=== PATIENT | male | born 1985 | race Caucasian/White ===

== ENCOUNTER 2017-07-31 16:12 | Emergency (ER) | payer OTHER | END 2017-07-31 16:52 | disposition home or self-care (01) | LOC: M ED 16:12 | DX: S02.5XXA Fracture of tooth (traumatic), initial encounter for closed fracture (principal); X58.XXXA Exposure to other specified factors, initial encounter; Y92.9 Unspecified place or not applicable; Y93.9 Activity, unspecified; Y99.9 Unspecified external cause status; F15.10 Other stimulant abuse, uncomplicated; Z79.810 Long term (current) use of selective estrogen receptor modulators (SERMs) | CPT/HCPCS: 99282 ==

== ENCOUNTER → 2017-09-22 | Outpatient (CLI) | payer OTHER ==
[2017-09-22 09:11] LABS: HEMATOCRIT 40.7 % (42.0-52.0); HEMOGLOBIN 13.8 g/dl (13.5-17.5); MEAN CORPUSCULAR HEMOGLOBIN 29.6 pg (27.0-33.0); MEAN CORPUSCULAR HGB CONC 33.9 g/dl (32.0-36.5); MEAN CORPUSCULAR VOLUME 87.3 fl (80.0-96.0); PLATELET COUNT, AUTOMATED 213 10^3/uL (150-450); RED BLOOD COUNT 4.66 10^6/uL (4.30-6.10); RED CELL DISTRIBUTION WIDTH 13.2 % (11.5-14.5); WHITE BLOOD COUNT 6.5 10^3/uL (4.0-10.0)
[2017-09-22 09:29] LABS: ALBUMIN 4.1 GM/DL (3.2-5.2); ALBUMIN/GLOBULIN RATIO 0.98 (1.00-1.93); ALKALINE PHOSPHATASE 69 U/L (45-117); ALT/SGPT 28 U/L (12-78); ANION GAP 8 MEQ/L (8-16); AST/SGOT 26 U/L (7-37); BILIRUBIN,TOTAL 0.5 MG/DL (0.2-1.0); BLOOD UREA NITROGEN 15 MG/DL (7-18); CALCIUM LEVEL 9.7 MG/DL (8.5-10.1); CARBON DIOXIDE LEVEL 30 MEQ/L (21-32); CHLORIDE LEVEL 101 MEQ/L (98-107); CREATININE FOR GFR 0.73 MG/DL (0.70-1.30); GLOMERULAR FILTRATION RATE > 60.0 (>60); GLUCOSE, FASTING 104 MG/DL (70-100); POTASSIUM SERUM 3.9 MEQ/L (3.5-5.1); SODIUM LEVEL 139 MEQ/L (136-145); TOTAL PROTEIN 8.3 GM/DL (6.4-8.2)
[2017-09-22 09:47] LABS: HEPATITIS B SURFACE ANTIGEN NEGATIVE (NEGATIVE)
[2017-09-22 10:15] LABS: HEPATITIS C VIRUS ABY INDEX 0.1 INDEX (<0.8)
[2017-09-22 10:16] LABS: HIV 1&2 SCREEN CENTAUR NEGATIVE (NEGATIVE)
[2017-09-22 12:49] LABS: CHLAMYDIA DNA AMPLIFICATION NEGATIVE (NEGATIVE); GC DNA AMPLIFICATION NEGATIVE (NEGATIVE)
== END ==
LOC: M LAB 08:01
DX: F11.20 Opioid dependence, uncomplicated (principal)
CPT/HCPCS: 93005

== ENCOUNTER 2018-03-27 01:05 | Emergency (ER) | payer OTHER ==
[2018-03-27 02:09] LABS: BASO % 0.4 % (0.0-1.0); EOS # 0.1 10^3/uL (0.0-0.50); EOS % 1.3 % (0.0-3.0); HEMATOCRIT 38.3 % (42.0-52.0); HEMOGLOBIN 12.5 g/dl (13.5-17.5); IMMATURE GRANULOCYTE % 0.1 % (0-3.0); LYMPH # 1.9 10^3/uL (1.5-4.5); LYMPH % 26.9 % (24.0-44.0); MEAN CORPUSCULAR HEMOGLOBIN 28.9 pg (27.0-33.0); MEAN CORPUSCULAR HGB CONC 32.6 g/dl (32.0-36.5); MEAN CORPUSCULAR VOLUME 88.5 fl (80.0-96.0); MONO # 0.4 10^3/uL (0.0-0.8); MONO % 5.8 % (0.0-5.0); NEUTROPHILS # 4.5 10^3/uL (1.8-7.7); NEUTROPHILS % 65.5 % (36.0-66.0); PLATELET COUNT, AUTOMATED 218 10^3/uL (150-450); RED BLOOD COUNT 4.33 10^6/uL (4.30-6.10); RED CELL DISTRIBUTION WIDTH 12.5 % (11.5-14.5); WHITE BLOOD COUNT 6.9 10^3/uL (4.0-10.0)
[2018-03-27 02:39] LABS: ANION GAP 8 MEQ/L (8-16); BLOOD UREA NITROGEN 12 MG/DL (7-18); CARBON DIOXIDE LEVEL 27 MEQ/L (21-32); CHLORIDE LEVEL 105 MEQ/L (98-107); CREATININE FOR GFR 0.74 MG/DL (0.70-1.30); GLOMERULAR FILTRATION RATE > 60.0 (>60); GLUCOSE, FASTING 107 MG/DL (70-100); POTASSIUM SERUM 4.8 MEQ/L (3.5-5.1); SODIUM LEVEL 140 MEQ/L (136-145)
== END 2018-03-27 02:35 | disposition left against medical advice (07) ==
LOC: M ED 01:05
DX: L98.9 Disorder of the skin and subcutaneous tissue, unspecified (principal); R53.1 Weakness; F11.10 Opioid abuse, uncomplicated; Z87.891 Personal history of nicotine dependence
CPT/HCPCS: 80048

== ENCOUNTER 2018-03-28 22:27 | Emergency (ER) | payer OTHER ==
[2018-03-28] MEDS: BACTRIM 160MG/800MG DS TAB PO (23:13)
[2018-03-28] MEDS: LIDOCAINE 1% SDV 5 ML VIAL DILUENT (23:13)
[2018-03-28] MEDS: cefTRIAXone SOD 1 GM VIAL (J0696) IM (23:13)
== END 2018-03-28 23:32 | disposition home or self-care (01) ==
LOC: M ED 22:27
DX: L03.114 Cellulitis of left upper limb (principal); F11.10 Opioid abuse, uncomplicated
CPT/HCPCS: J0696

== ENCOUNTER 2018-04-08 23:41 | Emergency (ER) | payer OTHER ==
[~2018-04-08] VITALS: Ht 177.8 cm; Wt 67.3 kg
[2018-04-08 23:41] VITALS: BP 146/83
[~2018-04-08 23:41] MED LIST: AMOX500C PO; BACT800T5 PO; METH40TA PO
== END 2018-04-08 23:50 | disposition left against medical advice (07) ==
LOC: M ED 23:41
DX: Z53.29 Procedure and treatment not carried out because of patient's decision for other reasons (principal)

== ENCOUNTER 2018-04-24 15:01 | Emergency (ER) | payer OTHER ==
[~2018-04-24] VITALS: Ht 177.8 cm; Wt 66.8 kg
[2018-04-24 15:02] VITALS: BP 142/81
== END 2018-04-24 15:31 | disposition left against medical advice (07) ==
LOC: M ED 15:01
DX: Z53.29 Procedure and treatment not carried out because of patient's decision for other reasons (principal)

== ENCOUNTER 2018-04-24 18:36 | Emergency (ER) | payer OTHER ==
[~2018-04-24] VITALS: Ht 177.8 cm; Wt 66.8 kg
[2018-04-24 19:53] VITALS: BP 145/88
[2018-04-24] MEDS ORDERED: CLINDAMYCIN 900 MG in APPROPRIATE DILUENT 1 EA IV ONE (20:15)
== END 2018-04-24 20:34 | disposition left against medical advice (07) ==
LOC: M ED 18:36
DX: L03.114 Cellulitis of left upper limb (principal); F11.20 Opioid dependence, uncomplicated; F17.210 Nicotine dependence, cigarettes, uncomplicated

== ENCOUNTER → 2018-06-09 | Outpatient (REF) | payer OTHER | LOC: M SFHCLERA 16:31 | PROVIDERS: ATTEND Nurse Practitioner Family | DX: L03.114 Cellulitis of left upper limb (principal) ==

== ENCOUNTER → 2018-06-15 | Outpatient (CLI) | payer MEDICAID | LOC: M OUTALCOH 08:30 | PROVIDERS: ATTEND Psychiatry & Neurology Psychiatry | DX: Z13.9 Encounter for screening, unspecified (principal) ==

== ENCOUNTER 2018-06-17 21:57 | Emergency (ER) | payer MEDICAID, OTHER ==
[~2018-06-17] VITALS: Ht 177.8 cm; Wt 70.5 kg
[2018-06-17 21:57] VITALS: BP 129/77
[2018-06-17] MEDS ORDERED: BACT800T5 PO (22:06)
[2018-06-17] MEDS ORDERED: CLINDAMYCIN 900 MG in APPROPRIATE DILUENT 1 EA IV ONE (23:15)
--- NOTE | 2018-06-18 00:48 | REP ---
Clinical: Cellulitis. Technique: AP and lateral views of the left forearm. Findings: Osseous structures and joint spaces are intact and normal. No acute fracture dislocation. No periosteal reaction. Surrounding soft tissues without subcutaneous emphysema or radiodense foreign body. Impression: Normal left forearm radiographs. Electronically Signed by Alfred Castelan MD 06/18/2018 12:40 A
== END 2018-06-18 | disposition left against medical advice (07) ==
LOC: M ED 21:57
DX: L03.113 Cellulitis of right upper limb (principal); L03.114 Cellulitis of left upper limb; F11.20 Opioid dependence, uncomplicated

== ENCOUNTER 2018-06-21 21:57 | Emergency (ER) | payer OTHER ==
[~2018-06-21] VITALS: Ht 177.8 cm; Wt 70.5 kg
[2018-06-21 21:58] VITALS: BP 155/91
== END 2018-06-21 22:38 | disposition left against medical advice (07) ==
LOC: M ED 21:57
DX: Z53.21 Procedure and treatment not carried out due to patient leaving prior to being seen by health care provider (principal)

== ENCOUNTER 2018-06-24 17:58 | Emergency (ER) | payer OTHER ==
[~2018-06-24] VITALS: Ht 177.8 cm; Wt 155.0 kg
[2018-06-24 18:00] VITALS: BP 142/79
== END 2018-06-24 20:15 | disposition left against medical advice (07) ==
LOC: M ED 17:58
DX: Z53.21 Procedure and treatment not carried out due to patient leaving prior to being seen by health care provider (principal)

== ENCOUNTER → 2018-07-20 | Outpatient (CLI) | payer MEDICAID | LOC: M OUTALCOH 09:12 | PROVIDERS: ATTEND Psychiatry & Neurology Psychiatry | DX: F11.20 Opioid dependence, uncomplicated (principal) ==

== ENCOUNTER → 2018-10-01 | Outpatient (REF) | payer OTHER | LOC: M SFHCLERA 13:48 | PROVIDERS: ATTEND Nurse Practitioner Family | DX: F19.10 Other psychoactive substance abuse, uncomplicated (principal) ==

== ENCOUNTER 2018-11-22 16:08 | Emergency (ER) | payer OTHER ==
[~2018-11-22] VITALS: Ht 177.8 cm; Wt 75.0 kg
[2018-11-22 16:08] VITALS: BP 142/88
[2018-11-22] MEDS ORDERED: SERO400T PO (16:16)
[2018-11-22] MEDS ORDERED: CLONI1TA PO (16:16)
[2018-11-22] MEDS ORDERED: EFFE75CA2 PO (16:16)
[2018-11-22] MEDS ORDERED: METH10CO3 PO (16:16)
[2018-11-22] MEDS ORDERED: HYDR50TA70 PO (16:16)
[2018-11-22] MEDS ORDERED: IBUP-1022 PO (17:19)
[2018-11-22] MEDS ORDERED: BACT800T5 PO (17:19)
[2018-11-22] MEDS ORDERED: BACTRIM 160MG/800MG DS TAB PO ONE (17:30)
== END 2018-11-22 17:42 | disposition home or self-care (01) ==
LOC: M ED 16:08
DX: L03.114 Cellulitis of left upper limb (principal); F19.10 Other psychoactive substance abuse, uncomplicated; Z72.0 Tobacco use; Z79.899 Other long term (current) drug therapy

== ENCOUNTER 2018-11-24 19:51 | Emergency (ER) | payer OTHER ==
[~2018-11-24] VITALS: Ht 177.8 cm; Wt 79.3 kg
[2018-11-24 19:51] VITALS: BP 107/57
[~2018-11-24 19:51] MED LIST changes: +CLONI1TA PO; +EFFE75CA2 PO; +HYDR50TA70 PO; +IBUP-1022 PO; +METH10CO3 PO; +SERO400T PO
[2018-11-24] MEDS ORDERED: VANCOMYCIN HCL 1,000 MG, VIAL MATE ADAPTER 1 EACH in D5W 250 ML IV ONE (20:15)
[2018-11-24] MEDS ORDERED: QUET200T2 PO (20:31)
[2018-11-24] MEDS ORDERED: CLONI1TA PO (20:31)
[2018-11-24] MEDS ORDERED: HYDR50CA2 PO ×2 (20:31)
--- NOTE | 2018-11-25 10:20 | REP ---
REASON: Admission chest , PA view. FINDINGS: The superior mediastinal structures are midline. The cardiac silhouette is unremarkable in size, shape, and position. The diaphragmatic surfaces of the lungs are regular, and the costophrenic angles are clear. The pulmonary gibson are clear. The imaged osseous structures are intact. IMPRESSION: There is no acute cardiopulmonary disease. Electronically Signed by Fred Jaramillo DO 11/25/2018 12:31 P
== END 2018-11-24 20:59 | disposition left against medical advice (07) ==
LOC: M ED 19:51
DX: L03.114 Cellulitis of left upper limb (principal); F11.10 Opioid abuse, uncomplicated; Z79.2 Long term (current) use of antibiotics; Z79.899 Other long term (current) drug therapy

== ENCOUNTER → 2018-11-30 | Outpatient (REF) | payer OTHER ==
[~2018-11-30] MED LIST changes: +DICL500C PO; +HYDR50CA2 PO; +OMEP-221; +QUET200T2 PO
[2018-12-01 09:12] LABS: HIV 1&2 SCREEN CENTAUR NEGATIVE (NEGATIVE)
[2018-12-02 09:25] LABS: HEPATITIS C VIRUS ABY INDEX 0.1 INDEX (<0.8)
== END ==
LOC: M SFHCLERA 14:04
PROVIDERS: ATTEND Nurse Practitioner Family
DX: F19.10 Other psychoactive substance abuse, uncomplicated (principal); L03.114 Cellulitis of left upper limb

== ENCOUNTER 2018-12-04 12:30 | Emergency (ER) | payer OTHER ==
[~2018-12-04] VITALS: Ht 177.8 cm; Wt 80.9 kg
[~2018-12-04 12:30] MED LIST changes: -DICL500C PO; -OMEP-221
[2018-12-04] MEDS ORDERED: OMEP-221 (12:48)
[2018-12-04] MEDS ORDERED: BACT800T5 PO (12:48)
[2018-12-04 14:20] LABS: BASO % 0.3 % (0.0-1.0); EOS # 0.2 10^3/uL (0.0-0.50); EOS % 1.8 % (0.0-3.0); HEMATOCRIT 35.7 % (42.0-52.0); HEMOGLOBIN 11.2 g/dl (13.5-17.5); LYMPH # 2.2 10^3/uL (1.5-4.5); LYMPH % 23.5 % (24.0-44.0); MEAN CORPUSCULAR HEMOGLOBIN 27.3 pg (27.0-33.0); MEAN CORPUSCULAR HGB CONC 31.4 g/dl (32.0-36.5); MEAN CORPUSCULAR VOLUME 86.9 fl (80.0-96.0); MONO # 0.5 10^3/uL (0.0-0.8); NEUTROPHILS # 6.4 10^3/uL (1.8-7.7); NEUTROPHILS % 69.2 % (36.0-66.0); PLATELET COUNT, AUTOMATED 244 10^3/uL (150-450); RED BLOOD COUNT 4.11 10^6/uL (4.30-6.10); WHITE BLOOD COUNT 9.2 10^3/uL (4.0-10.0)
[2018-12-04 14:44] LABS: ERYTHROCYTE SEDIMENTATION RATE 28 mm/hr (0-15)
[2018-12-04] MEDS ORDERED: NAFCILLIN SOD 2 GM in D5W MINI-BAG PLUS 50 ML IV ONE (14:45)
[2018-12-04 14:49] LABS: BLOOD UREA NITROGEN 12 MG/DL (7-18); C REACTIVE PROTEIN QUANTITATIV 0.37 MG/DL (0.00-0.30); CARBON DIOXIDE LEVEL 27 MEQ/L (21-32); CHLORIDE LEVEL 104 MEQ/L (98-107); CREATININE FOR GFR 0.84 MG/DL (0.70-1.30); GLOMERULAR FILTRATION RATE > 60.0 (>60); GLUCOSE, FASTING 104 MG/DL (70-100); POTASSIUM SERUM 4.4 MEQ/L (3.5-5.1); SODIUM LEVEL 139 MEQ/L (136-145)
[2018-12-04] MEDS ORDERED: DICL500C PO (16:02)
[2018-12-04 16:18] VITALS: BP 114/65
--- NOTE | 2018-12-04 23:45 | ECGEPIP ---
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 Order Number: [id number] Reading MD: Piter Álvarez Measurements Intervals [place] Rate: 80 P: 57 UT: 145 QRS: 50 QRSD: 80 T: 71 QT: 395 QTc: 456 Interpretive Statements SINUS RHYTHM Prolonged QTc interval Electronically Signed on 12-04-2018 23:44:47 EDT by Piter Álvarez
== END 2018-12-04 16:21 | disposition home or self-care (01) ==
LOC: M ED 12:30
DX: L03.114 Cellulitis of left upper limb (principal); F11.10 Opioid abuse, uncomplicated; Z79.899 Other long term (current) drug therapy

== ENCOUNTER → 2019-01-04 | Outpatient (REF) | payer OTHER ==
[~2019-01-04] MED LIST changes: +DICL500C PO; +OMEP-221
== END ==
LOC: M SFHCPLAZ 15:39
PROVIDERS: ATTEND Internal Medicine Infectious Disease
DX: Z22.321 Carrier or suspected carrier of Methicillin susceptible Staphylococcus aureus (principal); L03.90 Cellulitis, unspecified

== ENCOUNTER 2019-01-07 13:13 | Outpatient (CLI) | payer OTHER ==
[~2019-01-07] VITALS: Ht 180.3 cm; Wt 80.9 kg
[2019-01-07 13:20] VITALS: BP 105/60
[2019-01-07] MEDS: DALBAVANCIN 1,500 MG in D5W 500 ML IV ONE ×3 (13:40→15:09)
[2019-01-07 15:30] VITALS: BP 113/62
== END 2019-01-07 15:30 | disposition home or self-care (01) ==
LOC: M INFU 13:13
PROVIDERS: ATTEND Internal Medicine Infectious Disease
DX: L03.114 Cellulitis of left upper limb (principal); Z22.321 Carrier or suspected carrier of Methicillin susceptible Staphylococcus aureus; F11.10 Opioid abuse, uncomplicated
CPT/HCPCS: 96365; 96366; J0875

== ENCOUNTER → 2019-01-12 | Outpatient (CLI) | payer OTHER | LOC: M LRY 10:27 | PROVIDERS: ATTEND Family Medicine | DX: Z53.9 Procedure and treatment not carried out, unspecified reason (principal) ==

== ENCOUNTER → 2019-01-13 | Outpatient (CLI) | payer OTHER ==
--- NOTE | 2019-01-14 00:49 | ECGEPIP ---
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
== END ==
LOC: M EKG 11:11
PROVIDERS: ATTEND Family Medicine
DX: F11.20 Opioid dependence, uncomplicated (principal)

== ENCOUNTER 2019-03-14 03:12 | Emergency (ER) | payer OTHER ==
[~2019-03-14] VITALS: Ht 177.8 cm; Wt 86.4 kg
[2019-03-14 03:13] VITALS: BP 141/85
[2019-03-14] MEDS ORDERED: METH5SOL PO (03:20)
== END 2019-03-14 03:36 | disposition left against medical advice (07) ==
LOC: M ED 03:12
DX: Z53.21 Procedure and treatment not carried out due to patient leaving prior to being seen by health care provider (principal)

== ENCOUNTER 2019-04-23 14:32 | Outpatient (CLI) | payer OTHER ==
[~2019-04-23] VITALS: Ht 177.8 cm; Wt 86.4 kg
[~2019-04-23 14:32] MED LIST changes: +METH5SOL PO
[2019-04-23] MEDS ORDERED: ABIL1TAB11 PO (15:01)
[2019-04-23] MEDS ORDERED: DALBAVANCIN 1,500 MG in D5W 250 ML IV ONE (16:00)
== END 2019-04-23 16:00 | disposition home or self-care (01) ==
LOC: M INFU 14:32
PROVIDERS: ATTEND Internal Medicine Infectious Disease
DX: L03.114 Cellulitis of left upper limb (principal)

== ENCOUNTER → 2019-09-02 | Outpatient (REF) | payer OTHER ==
[~2019-09-02] MED LIST changes: +ABIL1TAB11 PO
== END ==
LOC: M LAB REF 12:40
PROVIDERS: ATTEND Physician Assistant
DX: S51.802D Unspecified open wound of left forearm, subsequent encounter (principal)

== ENCOUNTER → 2020-09-08 | Outpatient (CLI) | payer OTHER ==
[2020-09-08 14:02] LABS: HEMATOCRIT 40.4 % (42.0-52.0); HEMOGLOBIN 12.4 g/dl (13.5-17.5); MEAN CORPUSCULAR HEMOGLOBIN 25.4 pg (27.0-33.0); MEAN CORPUSCULAR HGB CONC 30.7 g/dl (32.0-36.5); MEAN CORPUSCULAR VOLUME 82.6 fl (80.0-96.0); PLATELET COUNT, AUTOMATED 299 10^3/uL (150-450); RED BLOOD COUNT 4.89 10^6/uL (4.30-6.10); WHITE BLOOD COUNT 7.8 10^3/uL (4.0-10.0)
[2020-09-08 14:56] LABS: ALT/SGPT 25 U/L (12-78); BILIRUBIN,TOTAL 0.4 MG/DL (0.2-1.0); BLOOD UREA NITROGEN 15 MG/DL (7-18); CALCIUM LEVEL 9.9 MG/DL (8.5-10.1); CARBON DIOXIDE LEVEL 27 MEQ/L (21-32); CHLORIDE LEVEL 103 MEQ/L (98-107); CREATININE FOR GFR 1.14 MG/DL (0.70-1.30); GLOMERULAR FILTRATION RATE > 60.0 (>60); GLUCOSE, FASTING 116 MG/DL (70-100); HEPATITIS B SURFACE ANTIGEN NEGATIVE (NEGATIVE); POTASSIUM SERUM 3.8 MEQ/L (3.5-5.1); SODIUM LEVEL 138 MEQ/L (136-145); TOTAL PROTEIN 8.9 GM/DL (6.4-8.2)
[2020-09-08 15:14] LABS: HEPATITIS C VIRUS ABY INDEX 0.1 INDEX (<0.8); HIV 1&2 SCREEN CENTAUR NEGATIVE (NEGATIVE)
== END ==
LOC: M LAB 13:11
PROVIDERS: ATTEND Family Medicine
DX: F11.20 Opioid dependence, uncomplicated (principal)

== ENCOUNTER 2021-04-08 01:30 | Emergency (ER) | payer OTHER ==
[~2021-04-08 01:30] MED LIST changes: -OMEP-221; +OMEP40CA5
[2021-04-08] MEDS ORDERED: CEPH500C PO (02:53)
== END 2021-04-08 03:16 | disposition home or self-care (01) ==
LOC: M ED 01:30
DX: S63.502A Unspecified sprain of left wrist, initial encounter (principal); W00.0XXA Fall on same level due to ice and snow, initial encounter; Y92.9 Unspecified place or not applicable; Y93.9 Activity, unspecified; Y99.9 Unspecified external cause status; L03.114 Cellulitis of left upper limb; F17.200 Nicotine dependence, unspecified, uncomplicated; F12.10 Cannabis abuse, uncomplicated; Z79.899 Other long term (current) drug therapy

== ENCOUNTER 2021-06-29 13:47 | Emergency (ER) | payer OTHER ==
[~2021-06-29] VITALS: Ht 177.8 cm; Wt 54.5 kg
[~2021-06-29 13:47] MED LIST changes: +CEPH500C PO
[2021-06-29 17:07] LABS: HEMATOCRIT 28.9 % (42.0-52.0); HEMOGLOBIN 8.5 g/dl (13.5-17.5); MEAN CORPUSCULAR HEMOGLOBIN 21.3 pg (27.0-33.0); MEAN CORPUSCULAR HGB CONC 29.4 g/dl (32.0-36.5); MEAN CORPUSCULAR VOLUME 72.4 fl (80.0-96.0); PLATELET COUNT, AUTOMATED 291 10^3/uL (150-450); RED BLOOD COUNT 3.99 10^6/uL (4.30-6.10); WHITE BLOOD COUNT 8.8 10^3/uL (4.0-10.0)
[2021-06-29 17:51] LABS: ACETAMINOPHEN LEVEL < 2.0 UG/ML (10.0-30.0); ALBUMIN 3.4 GM/DL (3.2-5.2); ALT/SGPT 21 U/L (12-78); BILIRUBIN,DIRECT < 0.1 MG/DL (0.0-0.2); BILIRUBIN,TOTAL 0.4 MG/DL (0.2-1.0); BLOOD UREA NITROGEN 17 MG/DL (7-18); CALCIUM LEVEL 9.8 MG/DL (8.5-10.1); CARBON DIOXIDE LEVEL 24 MEQ/L (21-32); CHLORIDE LEVEL 106 MEQ/L (98-107); CREATININE FOR GFR 0.89 MG/DL (0.70-1.30); ETHYL ALCOHOL (ETHANOL) < 0.003 % (0.000-0.010); GLOMERULAR FILTRATION RATE > 60.0 (>60); GLUCOSE, FASTING 97 MG/DL (70-100); POTASSIUM SERUM 4.2 MEQ/L (3.5-5.1); SALICYLATE LEVEL 2.9 MG/DL (5.0-30.0); SODIUM LEVEL 137 MEQ/L (136-145); THYROID STIMULATING HORMONE 0.885 uIU/ML (0.358-3.740); TOTAL PROTEIN 9.4 GM/DL (6.4-8.2)
[2021-06-29 17:57] LABS: ERYTHROCYTE SEDIMENTATION RATE 78 mm/hr (0-15)
[2021-06-29 18:24] LABS: AMPHETAMINES LEVEL URINE NEGATIVE (NEGATIVE); BARBITURATES URINE NEGATIVE (NEGATIVE); BENZODIAZEPINES URINE NEGATIVE (NEGATIVE); CANNABINOIDS URINE POSITIVE (NEGATIVE); COCAINE METABOLITE URINE POSITIVE (NEGATIVE); METHADONE URINE POSITIVE (NEGATIVE); OPIATES URINE POSITIVE (NEGATIVE); PHENCYCLIDINE URINE NEGATIVE (NEGATIVE)
[2021-06-29 18:39] VITALS: BP 123/84
== END 2021-06-29 20:05 | disposition home or self-care (01) ==
LOC: M ED 13:47 → EDBD 13:47 → M ED 20:05
DX: S41.102A Unspecified open wound of left upper arm, initial encounter (principal); M86.68 Other chronic osteomyelitis, other site; Y92.9 Unspecified place or not applicable; Y93.9 Activity, unspecified; Y99.9 Unspecified external cause status; F43.0 Acute stress reaction; F17.200 Nicotine dependence, unspecified, uncomplicated; F12.10 Cannabis abuse, uncomplicated

== ENCOUNTER → 2021-09-04 | Outpatient (REF) | payer OTHER | LOC: M SFHCLERA 10:56 | PROVIDERS: ATTEND Nurse Practitioner Family | DX: S51.802A Unspecified open wound of left forearm, initial encounter (principal); W18.30XA Fall on same level, unspecified, initial encounter; Y92.009 Unspecified place in unspecified non-institutional (private) residence as the place of occurrence of the external cause ==